=== PATIENT | female | born 1960 | race African-American/Black ===

== ENCOUNTER 2018-12-19 14:31 | Observation (INO) | payer MEDICARE, MEDICAID ==
[~2018-12-19] VITALS: Ht 167.6 cm; Wt 93.2 kg
[2018-12-19] VITALS (15 sets, daily range): BP systolic 123–160; BP diastolic 59–119
[2018-12-19 15:15] LABS: HEMATOCRIT 28.7 % (37.0-47.0); IMMATURE GRANULOCYTES 0.3 % (0.0-5.0); MEAN CELL VOLUME 89.4 fL CALC (80.0-100.0); MEAN CORPUSCULAR HGB CONC 31.4 g/L CALC (32.0-36.0); NEUT# 3.17 thou/uL (2.00-7.15); RED BLOOD COUNT 3.21 mill/uL (4.20-5.60); RED CELL DISTRI WIDTH 15.6 % (11.5-15.5)
[2018-12-19 15:37] LABS: ALBUMIN 4.3 g/dL (3.2-5.0); ALKALINE PHOSPHATASE 93 u/l (38-126); BILIRUBIN, TOTAL 0.2 mg/dL (0.0-1.4); BUN 64 mg/dL (7-17); BUN/CREATININE RATIO 18 (12-20 (CALC)); CARBON DIOXIDE 18 mmol/l (22-30); CHLORIDE 108 mmol/l (95-108); CREATININE 3.6 mg/dL (0.5-1.0); GFR 13 ML/MIN (>=60 (CALC)); GFR FOR AFR.AMER. 16 ML/MIN (>=60 (CALC)); LIPASE 159 u/l (23-300); SGOT/AST 18 u/l (14-36); SODIUM 141 mmol/l (137-146)
[2018-12-19 15:43] LABS: POTASSIUM 5.7 mmol/l (3.5-5.1)
[2018-12-19 15:44] LABS: ANION GAP 21 (6-22 (CALC))
[2018-12-19 16:15] LABS: INTERNATIONAL NORMALIZED RATIO 0.9 RATIO (0.7-1.3); PROTHROMBIN TIME 9.9 SECONDS (9.0-12.5)
[2018-12-19 16:33] LABS: URINE BILIRUBIN - DIPSTICK NEGATIVE (NEGATIVE); URINE BLOOD DIPSTICK NEGATIVE (NEGATIVE); URINE COLOR YELLOW; URINE GLUCOSE - DIPSTICK NEGATIVE (NEGATIVE); URINE KETONE NEGATIVE (NEGATIVE); URINE LEUK ESTERASE NEGATIVE (NEGATIVE); URINE NITRITE - DIPSTICK NEGATIVE (Negative); URINE PH 5.5 (4.5-8.0); URINE PROTEIN - DIPSTICK NEGATIVE (NEG-TRACE); URINE SPECIFIC GRAVITY 1.015; URINE UROBILINOGEN - DIPSTICK 0.2 E.U./dL (0.2)
[2018-12-20] VITALS (12 sets, daily range): BP systolic 96–145; BP diastolic 51–72
[2018-12-20 04:30] LABS: HEMOGLOBIN 7.9 g/dl (12.0-16.0); IMMATURE GRANULOCYTES 0.3 % (0.0-5.0); MEAN CELL VOLUME 89.6 fL CALC (80.0-100.0); MEAN CORPUSCULAR HGB 28.3 pG CALC (26.0-32.0); MEAN CORPUSCULAR HGB CONC 31.6 g/L CALC (32.0-36.0); NEUT# 3.3 thou/uL (2.00-7.15); RED BLOOD COUNT 2.79 mill/uL (4.20-5.60); RED CELL DISTRI WIDTH 15.4 % (11.5-15.5)
[2018-12-20 04:43] LABS: POTASSIUM 4.8 mmol/l (3.5-5.1)
[2018-12-20 04:51] LABS: CREATININE 1.9 mg/dL (0.5-1.0)
[2018-12-20 15:48] LABS: CREATININE 1.3 mg/dL (0.5-1.0)
[2018-12-20] MEDS ORDERED: OXYCODONE HCL30 MG PO (16:52)
[2018-12-20] MEDS ORDERED: GABAPENTIN300 M2 PO (16:53)
[2018-12-20] MEDS ORDERED: LISINOPRIL/HYDR1 TA1 PO (16:54)
[2018-12-20] MEDS ORDERED: METFORMIN500 MG PO (16:55)
[2018-12-20] MEDS ORDERED: PRAVASTATIN SOD20 MG PO (16:56)
== END 2018-12-20 17:26 | disposition home or self-care (01) ==
LOC: ED 14:31 → ED-I 17:21 → ED 17:32 → ICU 17:33
PROVIDERS: Family Medicine; ADMIT Internal Medicine; ATTEND Internal Medicine
PROC: 05HM33Z Insertion of Infusion Device into Right Internal Jugular Vein, Percutaneous Approach (ICD-10-PCS; principal; 2018-12-19)
PROC: B543ZZA Ultrasonography of Right Jugular Veins, Guidance (ICD-10-PCS; 2018-12-19)
DX: N17.9 Acute kidney failure, unspecified (principal); E87.5 Hyperkalemia; I95.9 Hypotension, unspecified; E86.0 Dehydration; I10 Essential (primary) hypertension; E11.9 Type 2 diabetes mellitus without complications; D64.9 Anemia, unspecified; M19.90 Unspecified osteoarthritis, unspecified site; F17.210 Nicotine dependence, cigarettes, uncomplicated; T38.3X6A Underdosing of insulin and oral hypoglycemic [antidiabetic] drugs, initial encounter; Z91.128 Patient's intentional underdosing of medication regimen for other reason; R53.1 Weakness; R42 Dizziness and giddiness; R94.31 Abnormal electrocardiogram [ECG] [EKG]